=== PATIENT | male | born 1995 | race Caucasian/White ===

== ENCOUNTER 2025-07-22 13:12 | Emergency (ER) | payer SELFPAY ==
[~2025-07-22] VITALS: Ht 175.3 cm; Wt 87.0 kg
[2025-07-22 13:26] VITALS: TEMP 97.9; O2SAT 98
[2025-07-22] MEDS: LIDOCAINE HCL 1% 20ML VIAL INFIL ONE (14:35)
[2025-07-22 14:36] VITALS: BP 130/79; PULSE 68; RESP 16
[2025-07-22] MEDS: TETANUS, DIPHTHERIA, PERTUSSIS VAC/PF 0.5ML (>10YR OLD) IM ONE (14:36)
[2025-07-22] MEDS: IBUPROFEN 600MG TABLET PO ONE (14:36)
[2025-07-22] MEDS ORDERED: IBUP-2437 MT (15:30)
[2025-07-22] MEDS ORDERED: BO1 TP (15:30)
== END 2025-07-22 16:05 | disposition home or self-care (01) ==
LOC: ER 13:12
DX: S01.01XA Laceration without foreign body of scalp, initial encounter (principal); R51.9 Headache, unspecified; X58.XXXA Exposure to other specified factors, initial encounter; Y93.89 Activity, other specified; Y92.89 Other specified places as the place of occurrence of the external cause; Y99.9 Unspecified external cause status
CPT/HCPCS: 70450; 90715; 12011; 90471; 99285; J2003; Z7610

== ENCOUNTER 2025-07-28 08:16 | Emergency (ER) | payer SELFPAY ==
[~2025-07-28] VITALS: Ht 172.7 cm; Wt 82.0 kg
[~2025-07-28 08:16] MED LIST: BO1 TP; IBUP-2437 MT
[2025-07-28 08:31] VITALS: O2SAT 98
[2025-07-28 10:54] VITALS: BP 115/70; PULSE 90; RESP 17; TEMP 36.6; O2SAT 99
== END 2025-07-28 10:56 | disposition home or self-care (01) ==
LOC: ER 08:16
DX: S01.81XD Laceration without foreign body of other part of head, subsequent encounter (principal); X58.XXXD Exposure to other specified factors, subsequent encounter
CPT/HCPCS: 99282